=== PATIENT | male | born 2000 | race Caucasian/White ===

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

== ENCOUNTER 2019-12-23 13:17 | Inpatient (IN) | payer SELFPAY ==
[2019-12-23 14:06] LABS: #Eosinphils 0.1 thou/uL (0.0-0.7); #Lymphocytes 1.5 thou/uL (1.20-3.40); #Neutrophils 13.5 thou/uL (1.40-6.50); %Basophils 0.1 % (0.0-1.0); %Eosinophils 0.3 % (0.0-10.0); %Lymphocytes 9.1 % (28.0-48.0); %Monocytes 6.3 % (0.0-4.0); %Neutrophils 84.2 % (31.0-61.0); Hemoglobin 14.8 g/dL (14.0-18.0); Mean Corpuscular HGB CONC 33.7 g/dL (32.0-36.0); Mean Corpuscular Hemoglobin 32.1 pg (25.0-35.0); Mean Corpuscular Volume 95.1 fL (78.0-98.0); Mean Platelet Volume 6.4 fL (7.4-10.4); Platelet Count 235 thou/uL (130-400); RBC Distribution Width 12.1 % (11.5-14.5); Red Blood Cell (RBC) Count 4.62 mill/uL (4.00-5.20)
[2019-12-23 14:28] LABS: Acetaminophen Less than 6.0 mcg/mL (10.0-30.0); Alcohol Less than 10 mg/dL (Less than 10); Salicylate Less than 8.0 mg/dL (15.0-30.0)
[2019-12-23 14:29] LABS: Bilirubin Negative (Negative); Blood, Urine Negative (Negative); Clarity Clear (Clear); Glucose, Urine (Dipstick) Normal (Negative); Leukocyte Negative Leu/uL (Negative); Nitrite Negative (Negative); Protein, Urine (Dipstick) Negative (Neg-Trace); Urobilinogen Normal mg/dL (Less than 2)
[2019-12-23 14:30] LABS: ALT (SGPT) 21 U/L (8-55); AST (SGOT) 26 U/L (5-34); Albumin 4.2 g/dL (3.5-5.0); Alkaline Phosphatase 50 U/L (50-130); Anion Gap 11 mmol/L (10-20); BUN (Urea Nitrogen) 16 mg/dL (8.9-20.6); Bilirubin, Total 0.5 mg/dL (0.2-1.2); CK (CPK) 581 U/L (30-200); Calc. Creatinine Clearance 0 mL/min (70-130); Calcium 9.1 mg/dL (7.8-10.44); Carbon Dioxide 24 mmol/L (22-29); Chloride 108 mmol/L (98-107); Estimated GFR-MDRD Greater than 90; Globulin 2.2 g/dL (2.4-3.5); Glucose 99 mg/dL (70-105); Potassium 4.2 mmol/L (3.5-5.1); Protein, Total 6.4 g/dL (6.0-8.3); Sodium 139 mmol/L (136-145)
[2019-12-23] MEDS ORDERED: Bisacodyl 10 MG SUPP PR PRN (14:33)
[2019-12-23] MEDS ORDERED: Acetaminophen 325 MG TAB PO PRN (14:33)
[2019-12-23] MEDS ORDERED: Guaifenesin DM 100-10/5 ML UDCUP PO PRN (14:33)
[2019-12-23] MEDS ORDERED: Ondansetron PF 4 MG/2 ML Vial IVP PRN (14:33)
[2019-12-23 14:40] LABS: Amphetamine Not Detected (NotDetected); Barbiturates Screen Not Detected (NotDetected); Benzodiazepine Screen Not Detected (NotDetected); Cocaine Metabolite Screen Not Detected (NotDetected); Medtox Control Line Valid? VALID (VALID); Medtox Reader # READER 4; Methadone Not Detected (NotDetected); Methamphetamine Not Detected (NotDetected); Opiate Screen Not Detected (NotDetected); Oxycodone Screen Not Detected (NotDetected); Phencyclidine (PCP) Not Detected (NotDetected); THC/Cannabinoid Screen Detected (NotDetected); Tricyclic Screen Not Detected (NotDetected)
[2019-12-23] MEDS ORDERED: Sodium Chloride 0.9% (PF) 10 ML VIAL FS PRN (14:44)
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
[2019-12-23 19:48] VITALS: BMI 29.9
[2019-12-23] MEDS: Sodium Chloride 0.9% 1,000 ML IV SCH (20:17)
[2019-12-23] MEDS: Pantoprazole 40 MG VIAL IVP SCH (21:11)
[2019-12-23] MEDS: Nicotine 14 MG PATCH TD SCH (21:11)
[2019-12-24 03:14] LABS: Hemoglobin 12.6 g/dL (14.0-18.0)
[2019-12-24 03:38] LABS: Anion Gap 10 mmol/L (10-20); BUN (Urea Nitrogen) 12 mg/dL (8.9-20.6); Calc. Creatinine Clearance 216 mL/min (70-130); Calcium 8.1 mg/dL (7.8-10.44); Carbon Dioxide 23 mmol/L (22-29); Chloride 109 mmol/L (98-107); Estimated GFR-MDRD Greater than 90; Glucose 85 mg/dL (70-105); Potassium 3.8 mmol/L (3.5-5.1); Sodium 138 mmol/L (136-145)
[2019-12-24] MEDS: Sodium Chloride 0.9% 1,000 ML IV SCH ×4 (03:42→16:28)
[2019-12-24] MEDS: Enoxaparin Sodium 40 MG/0.4 ML SYRINGE SC SCH (09:45)
[2019-12-24] MEDS: Pantoprazole 40 MG VIAL IVP SCH ×2 (09:46→20:43)
[2019-12-24] MEDS: Nicotine 14 MG PATCH TD SCH (16:36)
--- NOTE | 2019-12-24 20:48 | PDOC.HOSPP ---
- Subjective Encounter Date: 12/24/19 Subjective: The patient denies any chest pain, shortness of breath, abdominal pain, or change in his bowel habit. - Objective Vital Signs & Weight: Vital Signs (12 hours) Temp Pulse Resp BP Pulse Ox 12/24/19 20:02 96.3 F L 66 20 124/64 98 12/24/19 16:12 97.4 F L 87 16 128/67 98 12/24/19 12:00 98.5 F Weight Admit Weight 240 lb 1.334 oz Weight 240 lb 1.334 oz Most Recent Monitor Data Heart Rate from ECG 85 NIBP 112/65 NIBP BP-Mean 80 Respiration from ECG 18 SpO2 96 I&O: 12/23/19 12/24/19 12/25/19 06:59 06:59 06:59 Intake Total 2064 1050 Output Total 500 840 Balance 1564 210 Result Diagrams: 12/24/19 03:07 12/24/19 03:07 Additional Labs: Accuchecks 12/24/19 13:38 POC Glucose 81 Hospitalist ROS - Medication Medications: Active Medications Generic Name Dose Route Start Last Admin Trade Name Bassemq PRN Reason Stop Dose Admin Enoxaparin Sodium 40 mg 12/24/19 09:00 12/24/19 09:45 Lovenox SC 40 mg 0900 OTONIEL Administration Sodium Chloride 1,000 mls @ 150 mls/hr 12/23/19 14:45 12/24/19 16:28 Normal Saline 0.9% IV Not Given .Q6H40M OTONIEL Nicotine 14 mg 12/23/19 17:00 12/24/19 16:36 Nicoderm Patch TD 14 mg 1700 OTONIEL Administration Pantoprazole Sodium 40 mg 12/23/19 21:00 12/24/19 20:43 Protonix IVP 40 mg Q12HR OTONIEL Administration - Exam General Appearance: NAD ENT: normocephalic atraumatic, no oropharyngeal lesions Neck: supple, no JVD Heart: RRR, no murmur, no gallops, no rubs, normal peripheral pulses Respiratory: CTAB, no wheezes, no rales, no ronchi, normal chest expansion Neurological: cranial nerve grossly intact, no focal deficits Hosp A/P (1) Suicide attempt Status: Acute (2) Bleach ingestion Code(s): T54.91XA - TOXIC EFFECT OF UNSP CORROSIVE SUBSTANCE, ACCIDENTAL, INIT Status: Acute - Plan The patient is not exhibiting any symptoms at this moment. Check CMP in the a.m. If no changes in mental status and clear CMP, we will clear the patient for evaluation by MR.
[2019-12-25] MEDS: Sodium Chloride 0.9% 1,000 ML IV SCH ×4 (00:05→19:14)
[2019-12-25 06:07] LABS: ALT (SGPT) 15 U/L (8-55); AST (SGOT) 13 U/L (5-34); Albumin 3.5 g/dL (3.5-5.0); Alkaline Phosphatase 39 U/L (50-130); Anion Gap 10 mmol/L (10-20); BUN (Urea Nitrogen) 6 mg/dL (8.9-20.6); Bilirubin, Total 0.5 mg/dL (0.2-1.2); Calc. Creatinine Clearance 221 mL/min (70-130); Calcium 8.3 mg/dL (7.8-10.44); Carbon Dioxide 23 mmol/L (22-29); Chloride 109 mmol/L (98-107); Estimated GFR-MDRD Greater than 90; Glucose 82 mg/dL (70-105); Potassium 3.5 mmol/L (3.5-5.1); Protein, Total 5.5 g/dL (6.0-8.3); Sodium 138 mmol/L (136-145)
[2019-12-25] MEDS: Pantoprazole 40 MG VIAL IVP SCH ×2 (07:54→20:32)
[2019-12-25] MEDS: Enoxaparin Sodium 40 MG/0.4 ML SYRINGE SC SCH (10:13)
[2019-12-25] MEDS: Nicotine 14 MG PATCH TD SCH (16:48)
--- NOTE | 2019-12-25 21:43 | PDOC.HOSPP ---
- Subjective Encounter Date: 12/25/19 Subjective: No new complaints. - Objective Vital Signs & Weight: Vital Signs (12 hours) Temp Pulse Resp BP Pulse Ox 12/25/19 16:00 98.8 F 83 18 123/69 97 12/25/19 11:41 98.7 F 94 20 134/70 Weight Admit Weight 240 lb 1.334 oz Weight 240 lb 1.334 oz Most Recent Monitor Data Heart Rate from ECG 85 NIBP 112/65 NIBP BP-Mean 80 Respiration from ECG 18 SpO2 96 I&O: 12/24/19 12/25/19 12/26/19 06:59 06:59 06:59 Intake Total 2064 3330 2450 Output Total 500 840 Balance 1564 2490 2450 Result Diagrams: 12/24/19 03:07 12/25/19 05:09 Hospitalist ROS - Medication Medications: Active Medications Generic Name Dose Route Start Last Admin Trade Name Freq PRN Reason Stop Dose Admin Enoxaparin Sodium 40 mg 12/24/19 09:00 12/25/19 10:13 Lovenox SC Not Given 0900 OTONIEL Sodium Chloride 1,000 mls @ 150 mls/hr 12/23/19 14:45 12/25/19 19:14 Normal Saline 0.9% IV 1,000 mls .Q6H40M OTONIEL Administration Nicotine 14 mg 12/23/19 17:00 12/25/19 16:48 Nicoderm Patch TD 14 mg 1700 OTONIEL Administration Pantoprazole Sodium 40 mg 12/23/19 21:00 12/25/19 20:32 Protonix IVP 40 mg Q12HR OTONIEL Administration - Exam General Appearance: NAD ENT: normocephalic atraumatic Neck: supple, no JVD Heart: RRR, no murmur, no gallops, no rubs, normal peripheral pulses Respiratory: CTAB, no wheezes, no rales, no ronchi, normal chest expansion Gastrointestinal: soft, non-tender, non-distended, normal bowel sounds Extremities: no cyanosis Hosp A/P (1) Suicide attempt Status: Acute (2) Bleach ingestion Code(s): T54.91XA - TOXIC EFFECT OF UNSP CORROSIVE SUBSTANCE, ACCIDENTAL, INIT Status: Acute - Plan The patient is not exhibiting any symptoms at this moment. No evidence of renal or liver injury on laboratory testing. Consult [facility].
[2019-12-26] MEDS: Sodium Chloride 0.9% 1,000 ML IV SCH ×2 (02:38→08:48)
[2019-12-26 08:15] VITALS: BP 129/77; TEMP 98.1
[2019-12-26] MEDS: Pantoprazole 40 MG VIAL IVP SCH (08:46)
[2019-12-26] MEDS: Enoxaparin Sodium 40 MG/0.4 ML SYRINGE SC SCH (08:46)
--- NOTE | 2019-12-26 15:41 | PDOC.HOSPP ---
- Subjective Encounter Date: 12/26/19 Subjective: No new complaints - Objective Vital Signs & Weight: Vital Signs (12 hours) Temp Pulse Resp BP Pulse Ox 12/26/19 08:00 98.1 F 74 20 129/77 98 Weight Admit Weight 240 lb 1.334 oz Weight 240 lb 1.334 oz Most Recent Monitor Data Heart Rate from ECG 85 NIBP 112/65 NIBP BP-Mean 80 Respiration from ECG 18 SpO2 96 I&O: 12/25/19 12/26/19 12/27/19 06:59 06:59 06:59 Intake Total 3330 2450 720 Output Total 840 Balance 2490 2450 720 Result Diagrams: 12/24/19 03:07 12/25/19 05:09 Hospitalist ROS - Medication Medications: Active Medications Generic Name Dose Route Start Last Admin Trade Name Freq PRN Reason Stop Dose Admin Enoxaparin Sodium 40 mg 12/24/19 09:00 12/26/19 08:46 Lovenox SC 40 mg 0900 OTONIEL Administration Nicotine 14 mg 12/23/19 17:00 12/25/19 16:48 Nicoderm Patch TD 14 mg 1700 OTONIEL Administration Sodium Chloride 10 ml 12/23/19 14:44 12/26/19 08:46 Normal Saline Pf FS 10 ml PRN PRN Administration RECONSTITUTION - Exam General Appearance: NAD ENT: normocephalic atraumatic Neck: supple Heart: RRR Respiratory: CTAB Gastrointestinal: soft, non-tender, non-distended, normal bowel sounds Extremities: no cyanosis Neurological: cranial nerve grossly intact, no focal deficits Hosp A/P (1) Suicide attempt Status: Acute (2) Bleach ingestion Code(s): T54.91XA - TOXIC EFFECT OF UNSP CORROSIVE SUBSTANCE, ACCIDENTAL, INIT Status: Acute - Plan The patient is not exhibiting any symptoms at this moment. No evidence of renal or liver injury on laboratory testing. Pending inpatient psych placement DC IVF
[2019-12-26] MEDS: Nicotine 14 MG PATCH TD SCH (17:37)
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
== END 2019-12-27 00:15 | disposition home or self-care (01) | DRG 918 ==
LOC: ERS 13:17 → CCU 14:23 → T4-A 12-24 16:33
PROVIDERS: ADMIT Internal Medicine; ATTEND Internal Medicine
DX: T54.92XA Toxic effect of unspecified corrosive substance, intentional self-harm, initial encounter (principal); F31.9 Bipolar disorder, unspecified; F41.9 Anxiety disorder, unspecified; F12.10 Cannabis abuse, uncomplicated; F17.210 Nicotine dependence, cigarettes, uncomplicated; Y92.009 Unspecified place in unspecified non-institutional (private) residence as the place of occurrence of the external cause; Z88.1 Allergy status to other antibiotic agents; Z88.0 Allergy status to penicillin; Z88.2 Allergy status to sulfonamides; Z88.8 Allergy status to other drugs, medicaments and biological substances
CPT/HCPCS: 36415; 36416; 80048; 80053; 80306; 80307; 81003; 82550; 84443; 85025; 93005; 96360; 96361; C9113; J1650

== ENCOUNTER 2020-06-16 07:24 | Inpatient (IN) | payer OTHER, SELFPAY ==
[2020-06-16] MEDS ORDERED: Proparacaine 0.5% Opth 15 ML BOT ONE (07:48)
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
[2020-06-16] MEDS ORDERED: Ondansetron PF 4 MG/2 ML Vial IVP PRN (12:39)
[2020-06-16 12:54] VITALS: BMI 28.2
[2020-06-16] MEDS: Sodium Chloride 0.9% 1,000 ML IV SCH ×2 (13:13→20:38)
[2020-06-16] MEDS: Famotidine/PF 20 mg/2ml Vial SLOW IVP SCH (20:34)
[2020-06-17 04:12] LABS: #Eosinphils 0.1 thou/uL (0.0-0.7); #Lymphocytes 1.1 thou/uL (1.20-3.40); #Monocytes 0.9 thou/uL (0.11-0.59); #Neutrophils 11.9 thou/uL (1.40-6.50); %Eosinophils 0.5 % (0.0-10.0); %Lymphocytes 7.7 % (21.0-51.0); %Monocytes 6.6 % (0.0-10.0); %Neutrophils 85.2 % (42.0-75.0); Hemoglobin 12.7 g/dL (14.0-18.0); Mean Corpuscular HGB CONC 33.2 g/dL (32.0-36.0); Mean Corpuscular Hemoglobin 32.1 pg (27.0-31.0); Mean Corpuscular Volume 96.7 fL (78.0-98.0); Mean Platelet Volume 7.1 fL (7.4-10.4); Platelet Count 169 thou/uL (130-400); RBC Distribution Width 12.5 % (11.5-14.5); Red Blood Cell (RBC) Count 3.95 mill/uL (4.70-6.10); White Blood Cell (WBC) Count 13.9 thou/uL (4.8-10.8)
[2020-06-17 04:14] LABS: Anion Gap 17 mmol/L (10-20); BUN (Urea Nitrogen) 8 mg/dL (8.9-20.6); Calc. Creatinine Clearance 188 mL/min (70-130); Calcium 8.5 mg/dL (7.8-10.44); Carbon Dioxide 16 mmol/L (22-29); Chloride 110 mmol/L (98-107); Estimated GFR-MDRD Greater than 90; Glucose 78 mg/dL (70-105); Potassium 4.1 mmol/L (3.5-5.1); Sodium 139 mmol/L (136-145)
[2020-06-17] MEDS: Sodium Chloride 0.9% 1,000 ML IV SCH ×3 (04:22→21:07)
[2020-06-17] MEDS: Famotidine/PF 20 mg/2ml Vial SLOW IVP SCH ×2 (08:21→21:06)
--- NOTE | 2020-06-17 08:54 | PDOC.HOSPP ---
- Subjective Encounter Date: 06/17/20 Encounter Time: 08:52 Subjective: awake, alert, cooperative. states only took pills to sleep - Objective Vital Signs & Weight: Vital Signs (12 hours) Pulse Resp BP Pulse Ox 06/17/20 03:09 100 18 131/64 97 06/17/20 00:00 91 Weight Weight 228 lb 6.4 oz I&O: 06/16/20 06/17/20 06/18/20 06:59 06:59 06:59 Intake Total 750 Output Total 700 Balance 50 Result Diagrams: 06/17/20 03:39 06/17/20 03:39 Additional Labs: Accuchecks 06/16/20 09:41 POC Glucose 85 Hospitalist ROS - Medication Medications: Active Medications Generic Name Dose Route Start Last Admin Trade Name Ale PRN Reason Stop Dose Admin Famotidine 20 mg 06/16/20 21:00 06/17/20 08:21 Pepcid SLOW IVP 20 mg Q12HR OTONIEL Administration Sodium Chloride 1,000 mls @ 125 mls/hr 06/16/20 12:39 06/17/20 04:22 Normal Saline 0.9% IV 1,000 mls .Q8H OTONIEL Administration Sodium Chloride 10 ml 06/16/20 21:00 06/16/20 20:35 Flush - Normal Saline IVF Not Given Q12HR OTONIEL - Exam Eye: PERRL Eye - other findings: R orbital hematoma, EOMs intact, visual acuity grossly normal Neck: no JVD Heart: RRR, no murmur Respiratory: CTAB Gastrointestinal: soft, normal bowel sounds Extremities: no edema Hosp A/P (1) Encephalopathy acute Code(s): G93.40 - ENCEPHALOPATHY, UNSPECIFIED Status: Acute (2) OD (overdose of drug) Code(s): T50.901A - POISONING BY UNSP DRUG/MEDS/BIOL SUBST, ACCIDENTAL, INIT Status: Acute (3) Facial trauma Status: Acute - Plan discuused with Fr EngSqkswgm-pivjfvm-ulxfhg surgery no surgical problem at presen recommende decadron iv q 8h x3 for orbitakl swelling-ordered he will FU patient in office post discharge then
[2020-06-17 12:28] LABS: Amphetamine Detected (NotDetected); Barbiturates Screen Not Detected (NotDetected); Benzodiazepine Screen Not Detected (NotDetected); Cocaine Metabolite Screen Not Detected (NotDetected); Medtox Control Line Valid? VALID (VALID); Medtox Reader # READER 1; Methadone Not Detected (NotDetected); Methamphetamine Not Detected (NotDetected); Opiate Screen Not Detected (NotDetected); Oxycodone Screen Not Detected (NotDetected); Phencyclidine (PCP) Not Detected (NotDetected); THC/Cannabinoid Screen Not Detected (NotDetected); Tricyclic Screen Detected (NotDetected)
[2020-06-17 12:29] LABS: SARS-CoV-2 MS2 Positive; SARS-CoV-2 N Gene Negative; SARS-CoV-2 S Gene Negative; SARS-CoV-2 by NAA Not Detected (NotDetected); SARS-CoV-2 orf1ab Negative
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
[2020-06-17] MEDS: Dexamethasone 4 mg/ml Vial SLOW IVP SCH ×2 (15:02→21:07)
[2020-06-18] MEDS: Dexamethasone 4 mg/ml Vial SLOW IVP SCH ×2 (05:48→17:56)
[2020-06-18] MEDS: Sodium Chloride 0.9% 1,000 ML IV SCH ×2 (05:48→17:56)
--- NOTE | 2020-06-18 07:13 | PDOC.HOSPP ---
- Subjective Encounter Date: 06/18/20 Encounter Time: 07:13 Subjective: alert, oriented - Objective Vital Signs & Weight: Vital Signs (12 hours) Temp Pulse Resp BP BP Pulse Ox 06/18/20 03:54 97.8 F 88 20 125/69 94 L 06/17/20 23:37 97.9 F 91 16 119/64 95 06/17/20 19:18 97.9 F 91 16 130/60 94 L Weight Weight 228 lb 6.4 oz I&O: 06/17/20 06/18/20 06/19/20 06:59 06:59 06:59 Intake Total 750 Output Total 700 Balance 50 Result Diagrams: 06/17/20 03:39 06/17/20 03:39 Hospitalist ROS - Medication Medications: Active Medications Generic Name Dose Route Start Last Admin Trade Name Freq PRN Reason Stop Dose Admin Dexamethasone 8 mg 06/17/20 14:00 06/18/20 05:48 Decadron SLOW IVP 8 mg Q8HR OTONIEL Administration Famotidine 20 mg 06/16/20 21:00 06/17/20 21:06 Pepcid SLOW IVP 20 mg Q12HR OTONIEL Administration Sodium Chloride 1,000 mls @ 125 mls/hr 06/16/20 12:39 06/18/20 05:48 Normal Saline 0.9% IV 1,000 mls .Q8H OTONIEL Administration Sodium Chloride 10 ml 06/16/20 21:00 06/17/20 21:07 Flush - Normal Saline IVF Not Given Q12HR OTONIEL - Exam General Appearance: awake alert Eye - other findings: right orbital swellig improved, PERRL, EOMs intact ENT: normocephalic atraumatic (down, PERR) Neck: no JVD Heart: RRR Respiratory: CTAB Gastrointestinal: soft, normal bowel sounds Extremities: no edema Hosp A/P (1) Encephalopathy acute Code(s): G93.40 - ENCEPHALOPATHY, UNSPECIFIED Status: Acute (2) OD (overdose of drug) Code(s): T50.901A - POISONING BY UNSP DRUG/MEDS/BIOL SUBST, ACCIDENTAL, INIT Status: Acute (3) Facial trauma Status: Acute - Plan discuused with Fr EngGcwaouw-pvgbgio-iculvj surgery no surgical problem at preseny recommende decadron iv q 8h x3 for orbitakl swelling-ordered he will FU patient [facility]
[2020-06-18] MEDS: Famotidine/PF 20 mg/2ml Vial SLOW IVP SCH (09:15)
[2020-06-18 12:03] VITALS: BP 131/72; TEMP 98
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
--- NOTE | 2020-06-21 02:52 | PQF ---
Dear : Luis Miguel Thomas Date / Time:06/21/20 Please exercise your independent, professional judgment in responding to the clarification form. Clinical indicators are provided on the bottom of this form for your review Can you please further clarify the etiology of Encephalopathy? Please check appropriate box(es): [ ] Encephalopathy: Type: [ ] Acute [ ] Subacute [ ] Chronic Etiology: [ ] Metabolic [ ] Toxic [ ] Drug induced: [ ] Other (please specify) [ ] Other diagnosis please specify [ ] Unable to determine Physician Signature: Date/Time: For continuity of documentation, please document condition throughout progress notes and discharge summary. Thank You. To be completed by CDI/Coding staff for physician review: Present Clinical Indicators - Signs / Symptoms / Labs Results and Location in Medical Record [ x ] The patient is not responsive to verbal stimuli, currently withdraws with painful stimuli H and P pg.1 [ x ] The patient was somnolent on arrival H and P pg.1 [ x ] He took an unknown amount of medication and reportedly was usin amphetamines H and P pg.1 [ x ] Encephalopathy, polysubstance abuse H and P pg.1 [ x ] Encephalopathy 2/2 fracture of facila bones Present Risk Factors Results and Location in Medical Record [ x ] Smoker H and P pg.1 [ x ] Uses methamphetamine and marijuana H and P pg.1 [ x ] Polysubstance abuse H and P pg.1 [ x ] Medication overdose H and P pg.1 [ x ] Nasal fracture H and P pg.1 [ x ] Tobacco abuse DS pg.1 Present Treatments Results and Location in Medical Record [ x ] Neuro checks q 4 hours H and P pg.2 [ x ] IV Fluids MAR [ x ] Urine Tricyclics screen-H Toxicology [ x ] Urine Amphetamines Screen- H Toxicology [employer] Signature: Zaid Lafleur Phone #: ext [phone] Date 06/21/2020 This is a permanent part of the Medical Record [facility]
--- NOTE | 2020-06-28 12:53 | EKG ---
Test Reason : Blood Pressure : / mmHG Vent. Rate : 077 BPM Atrial Rate : 077 BPM P-R Int : 154 ms QRS Dur : 098 ms QT Int : 422 ms P-R-T Axes : 042 064 035 degrees QTc Int : 477 ms Normal sinus rhythm Normal ECG Confirmed by LUPSI TYLER ([id number]), editor book IVON CHINO ([id number]) on 06/28/2020 12:53:10 PM Referred By: Confirmed By:LUPIS Graves
== END 2020-06-18 19:02 | disposition home or self-care (01) | DRG 155 ==
LOC: ERS 07:24 → 2NO 09:46 → OBSVTOIN 12:39 → ONC 06-17 12:52
PROVIDERS: ADMIT Internal Medicine; ATTEND Internal Medicine
DX: S02.2XXA Fracture of nasal bones, initial encounter for closed fracture (principal); S02.40DA Maxillary fracture, left side, initial encounter for closed fracture; G93.40 Encephalopathy, unspecified; E87.2 Acidosis; T43.222A Poisoning by selective serotonin reuptake inhibitors, intentional self-harm, initial encounter; Z20.828 Contact with and (suspected) exposure to other viral communicable diseases; T43.592A Poisoning by other antipsychotics and neuroleptics, intentional self-harm, initial encounter; F17.210 Nicotine dependence, cigarettes, uncomplicated; S05.11XA Contusion of eyeball and orbital tissues, right eye, initial encounter; Y08.89XA Assault by other specified means, initial encounter; R40.2362 Coma scale, best motor response, obeys commands, at arrival to emergency department; R40.2142 Coma scale, eyes open, spontaneous, at arrival to emergency department; R40.2252 Coma scale, best verbal response, oriented, at arrival to emergency department; F19.10 Other psychoactive substance abuse, uncomplicated; Z88.0 Allergy status to penicillin; Z88.2 Allergy status to sulfonamides
CPT/HCPCS: 36415; 36416; 72125; 80048; 80306; 85025; 87635; 93005; G0378; J1100; S0028; U0003

== ENCOUNTER 2020-06-28 16:53 | Emergency (ER) | payer SELFPAY ==
[~2020-06-28 16:53] MED LIST: Iopamidol-370 76% 500 ML 1 ML ONE
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
[2020-06-28 17:30] LABS: #Eosinphils 0.1 thou/uL (0.0-0.7); #Lymphocytes 1.1 thou/uL (1.20-3.40); #Monocytes 1.1 thou/uL (0.11-0.59); #Neutrophils 12.2 thou/uL (1.40-6.50); %Basophils 0.1 % (0.0-1.0); %Eosinophils 0.3 % (0.0-10.0); %Lymphocytes 7.6 % (21.0-51.0); %Monocytes 7.6 % (0.0-10.0); %Neutrophils 84.4 % (42.0-75.0); Hemoglobin 14.1 g/dL (14.0-18.0); Mean Corpuscular HGB CONC 33.6 g/dL (32.0-36.0); Mean Corpuscular Hemoglobin 32.2 pg (27.0-31.0); Mean Corpuscular Volume 95.9 fL (78.0-98.0); Mean Platelet Volume 6.7 fL (7.4-10.4); Platelet Count 224 thou/uL (130-400); RBC Distribution Width 12.7 % (11.5-14.5); Red Blood Cell (RBC) Count 4.38 mill/uL (4.70-6.10); White Blood Cell (WBC) Count 14.5 thou/uL (4.8-10.8)
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
[2020-06-28 17:51] LABS: Anion Gap 17 mmol/L (10-20); BUN (Urea Nitrogen) 21 mg/dL (8.9-20.6); Calc. Creatinine Clearance 0 mL/min (70-130); Calcium 8.7 mg/dL (7.8-10.44); Carbon Dioxide 22 mmol/L (22-29); Chloride 108 mmol/L (98-107); Estimated GFR-MDRD 87; Glucose 93 mg/dL (70-105); Potassium 3.5 mmol/L (3.5-5.1); Sodium 143 mmol/L (136-145)
[2020-06-28] MEDS ORDERED: Succinylcholine Chloride 20 MG/ML 10 ml SYRINGE FS ONE (17:56)
[2020-06-28] MEDS ORDERED: Boostrix 0.5 ML VIAL ONE (17:57)
== END 2020-06-28 19:30 | disposition home or self-care (01) ==
LOC: ERS 16:53 → EEVIPCON 16:53 → ERS 19:30
DX: S21.211A Laceration without foreign body of right back wall of thorax without penetration into thoracic cavity, initial encounter (principal); S50.11XA Contusion of right forearm, initial encounter; Z23 Encounter for immunization; Y08.09XA Assault by strike by other specified type of sport equipment, initial encounter
CPT/HCPCS: 12001; 71045; 71260; 74177; 80048; 85025; 90471; 90715; 96365; G0390; J0690; Q9967